=== PATIENT | female | born 1975 | race Caucasian/White ===

== ENCOUNTER 2016-12-09 10:27 | Emergency (ER) | payer BC ==
[2016-12-09 10:48] VITALS: BP 149/99
--- NOTE | 2016-12-09 11:07 | UC ---
Hip/Pelvis Pain - HPI Summary HPI Summary: continued pain in left hip radiating down leg - History Of Current Complaint Chief Complaint: UCLowerExtremity Stated Complaint: UPPER THIGH PAIN, HIP AND BACK PAIN Time Seen by Provider: 12/09/16 11:05 Hx Obtained From: Patient Hx Last Menstrual Period: 11/26/16 ?: No Mechanism Of Injury: none Onset/Duration: Sudden Onset, Lasting Days, Still Present Timing: Constant Severity Initially: Moderate Severity Currently: Moderate Location: Discrete At: - left hip down thigh Character Of Pain: Aching Aggravating Factor(s): Movement, Weight Bearing Alleviating Factor(s): Rest, Position, Heat, Other - pain med Associated Signs And Symptoms: Positive: Negative Related History: Similar Episode/Dx As - seen PCP yesterday DX with trochanter bursitis - Allergies/Home Medications Allergies/Adverse Reactions: Allergies Allergy/AdvReac Type Severity Reaction Status Date / Time No Known Allergies Allergy Verified 12/09/16 10:41 Home Medications: Home Medications HYDROcodone/ACETAMIN 5-325 MG* [[place] 5-325 TAB*] 1 tab PO Q4H PRN 12/09/16 [ History Confirmed 12/09/16] Ibuprofen [Motrin Ib] 600 12/09/16 [History] Sertraline* [Zoloft*] 12/09/16 [History] PMH/Surg Hx/FS Hx/Imm Hx Previously Healthy: Yes - Surgical History Surgical History: None - Family History Known Family History: Positive: Hypertension - Social History Occupation: Employed Part-time Lives: With Family Alcohol Use: None Substance Use Type: None Smoking Status (MU): Never Smoked Tobacco Have You Smoked in the Last Year: No - Immunization History Most Recent Influenza Vaccination: 2016 Review of Systems Constitutional: Negative Skin: Negative Eyes: Negative ENT: Negative Respiratory: Negative Cardiovascular: Negative Gastrointestinal: Negative Genitourinary: Negative Motor: Other - pain left hip Neurovascular: Negative Musculoskeletal: Arthralgia - left hip and leg Neurological: Negative Psychological: Negative All Other Systems Reviewed And Are Negative: Yes Physical Exam Triage Information Reviewed: Yes Appearance: Well-Appearing, Well-Nourished, Pain Distress Vital Signs: Initial Vital Signs Temp 99.1 F 12/09/16 10:42 Pulse 98 12/09/16 10:42 Resp 16 12/09/16 10:42 BP 149/99 12/09/16 10:42 Pulse Ox 99 12/09/16 10:42 Vital Signs Reviewed: Yes Eye Exam: Normal Eyes: Positive: Conjunctiva Clear ENT Exam: Normal ENT: Positive: Normal ENT inspection, Hearing grossly normal. Negative: Nasal congestion, Nasal drainage, Trismus, Muffled/hoarse voice Dental Exam: Normal Neck exam: Normal Neck: Positive: Supple, Nontender Respiratory Exam: Normal Respiratory: Positive: Chest non-tender, No respiratory distress, No accessory muscle use Cardiovascular Exam: Normal Cardiovascular: Positive: RRR, Pulses Normal, Brisk Capillary Refill Musculoskeletal: Positive: ROM Intact, No Edema, Strength Limited @ - difficult to wb on left Neurological Exam: Normal Neurological: Positive: Alert, Muscle Tone Normal Psychological Exam: Normal Skin Exam: Normal Diagnostics - Radiology No standard instances Xray Interpretation: Positive (See Comments) - mild degenerative change L5-S1 Radiology Interpretation Completed By: Radiologist Hip Injury Course/Dx - Course Course Of Treatment: Physical therapy, meds as rx by PCP follow with PCP re- check this week - Differential Dx/Diagnosis Differential Diagnosis/HQI/PQRI: Bursitis, Infection, Sciatica, Sprain, Strain Provider Diagnoses: Left hip Bursitis Discharge - Discharge Plan Condition: Stable Disposition: HOME Patient Education Materials: Hip Bursitis (ED) Forms: *Work Release Referrals: Casey COFFMAN,[place] [Primary Care Provider] - 4 Days
[2016-12-09] MEDS: HYDROcodone/ACETAMIN 5-325 MG* 1 TAB PO ONE (11:36)
--- NOTE | 2016-12-09 11:51 | RAD ---
INDICATION: Left hip pain COMPARISON: None TECHNIQUE: An AP view of the pelvis and AP views of the hip in neutral and abducted position were obtained FINDINGS: Bones: There are no acute bony findings. Joint spaces: The hips articulate normally. The joint spaces are preserved. SI joints/symphysis: The SI joints and symphysis are intact. Other: None IMPRESSION: NEGATIVE EXAMINATION
--- NOTE | 2016-12-09 11:52 | RAD ---
INDICATION: Back pain COMPARISON: None TECHNIQUE: Routine PA, lateral, and oblique imaging was performed . FINDINGS: Bones: There are no acute bony findings. There are minor ossific changes with endplate sclerosis and narrowing about L5-S1. Alignment: Normal Disc spaces: The remaining disc spaces are well-maintained Soft tissues: There are no soft tissue abnormalities. IMPRESSION: MINOR DEGENERATIVE CHANGES L5-S1.
== END 2016-12-09 12:11 | disposition home or self-care (01) ==
LOC: UCEAST 10:27
DX: M70.72 Other bursitis of hip, left hip (principal); Y93.9 Activity, unspecified
CPT/HCPCS: 72110; 99212; G0463